=== PATIENT | male | born 1945 | race Caucasian/White ===

== ENCOUNTER 2017-01-31 05:10 | Day surgery (SDC) | payer MEDICARE, MEDICAID ==
[2017-01-30 11:10] LABS: BASOPHILS 0.3 % (0.0-2.0); EOSINOPHILS 1.3 % (0-7); HEMATOCRIT 48.9 % (42.0-54.0); HEMOGLOBIN 16.7 g/dL (13.5-17.5); LYMPHOCYTES 16.1 % (15-50); MCH 33.1 pg (26.0-34.0); MCHC 34.2 g/dL (31.0-37.0); MCV 96.8 fL (80.0-100.0); MEAN PLATELET VOLUME 11.2 fL (7.4-10.4); MONOCYTES 7.8 % (2-11); NEUTROPHILS 74.5 % (40-80); PLATELET COUNT 132 10x3/uL (130-400); RBC 5.05 10x6/uL (4.20-6.10); RDW 12.8 % (11.5-14.5)
[2017-01-30 11:21] LABS: APTT 31.6 SECONDS (22.8-39.4); CARBON DIOXIDE 25.5 mmol/L (21.0-32.0); CREATININE - SERUM 1.7 mg/dL (0.6-1.3); INR 1.04 (0.85-1.17); POTASSIUM - SERUM 4.5 mmol/L (3.5-5.1); PROTIME 13.5 SECONDS (11.6-15.0)
[~2017-01-31] VITALS: Ht 190.5 cm; Wt 88.5 kg
--- NOTE | ~2017-01-31 | OP ---
PATIENT NAME: SHARMILA KIMBLE MEDICAL RECORD: [id number] :45 LOCATION:[facility] ADMISSION DATE: SURGEON: HEATH ACEVEDO MD DATE OF OPERATION: 01/31/2017 REFERRING PHYSICIAN: Bear Betancur MD PREOPERATIVE DIAGNOSIS: Initial reducible symptomatic right inguinal hernia. POSTOPERATIVE DIAGNOSIS: Initial reducible direct right inguinal hernia. OPERATION: Repair with preperitoneal Kugel technique implanting a small oval Ventrio ST polypropylene self-expanding mesh. SURGEON: Heath Acevedo MD ANESTHESIA: General with LMA per HISTOLOGY TECHNICIAN. PREOPERATIVE NOTE: Mr. Kimble is a very nice 71-year-old white male patient with a mildly symptomatic right inguinal hernia, which I have determined should be repaired and he was brought to the operating room as an outpatient for that. Under general anesthesia in supine position, the patient was prepped and draped in a sterile manner with the right arm at his side, a transverse incision about 4 cm in length was made in the right lower quadrant. Subcutaneous tissues were divided with electrocautery and the external oblique aponeurosis, opened parallel to its fibers and the muscle splitting gridiron technique used to enter the preperitoneal space, which was then dissected bluntly and a direct inguinal hernia reduced. The defect was about ping pong ball sized. Additional dissection exposed the internal ring and the spermatic cord and it did demonstrated that there was no indirect inguinal hernia present. The wound was instilled with 10 cc of 0.25% Marcaine with epinephrine and a size small Bard oval Ventrio ST mesh patch was placed in the preperitoneal space with the adhesion barrier side facing the peritoneum. The patch covered completely the floor of the inguinal canal and the hernia defect and Raymond's ligament and the internal ring and cord structures and then wrapped around as a taco under the anterior abdominal wall reinforcing the closure as well. The patch was held in position and the abdominal wall closure begun with a few interrupted simple 3-0 Vicryl sutures, approximating the internal oblique and transversus abdominis muscle fascia with 3-0 Vicryl. Again, the wound was infiltrated with another 20 cc of 0.25% Marcaine with epinephrine. The external oblique aponeurosis was then approximated with interrupted 3-0 Vicryl and the subcutaneous tissues and Alexandria's fascia also then approximated as a separate layer with inverted 3-0 Vicryl sutures. Skin was closed with a running intracuticular 4-0 Monocryl and Dermabond glue and the incision then dressed with Maxorb AG, Cavilon and Tegaderm skin prep. The patient was awakened and taken to the recovery room in stable condition. Blood loss throughout the procedure was insignificant. All sponges, instruments and needles were accounted for. No drain was used and no surgical specimen was submitted for histopathology. I will have Mr. Kimble back to see me in my office next week. In the meantime, he can resume activities as tolerated. He is to resume a regular diet as tolerated and continue all of his home medications. He is to shower and wash over the waterproof plastic dressing as desired. He is to continue his home medications and is given 2 additional prescriptions, one for Surfak 240 mg to OPERATIVE REPORT [id number] SHARMILA KIMBLE take 1 daily for 30 days to prevent opioid-induced postoperative constipation. He is also given a paper hand signed and signed a prescription for Cook 5/325, #30, one or if necessary two p.o. q.4 hours p.r.n. postop pain. He may also alternate the Cook with ibuprofen or take Aleve with the medication or instead of the medication prescribed. TRANSINT:[id number] Voice Confirmation ID: [id number] DOCUMENT ID: [id number] HEATH ACEVEDO MD CC: BEAR BETANCUR M.D. [id number] DICTATION DATE: 01/31/17921 PEDIATRIC NP: 01/31/17 1011 REG [facility] [address] [place] [address]
[~2017-01-31 05:10] MED LIST: CRESTOR40 MG PO; GLUCOPHAGE1000 MG PO; GLUCOTROL 5 MG T5 MG PO; JANUVIA25 MG PO; JARDIANCE10 MG PO; LISINOPRIL2.5 MG PO
[2017-01-31 06:53] VITALS: BP 112/71; Ht 190.5 cm; Wt 88.5 kg
[2017-01-31] MEDS ORDERED: SURFAK240 MG PO (09:06)
[2017-01-31] MEDS ORDERED: HYDROCODON-ACE1 EAC7 PO (09:07)
--- NOTE | 2017-01-31 17:32 | NUR ---
1015 IV DC WITH CATHER TIP INTACT
== END 2017-01-31 10:30 | disposition home or self-care (01) ==
LOC: D.OPS 05:10 → D.PAN 07:30 → D.OPS 07:30
PROVIDERS: Surgery
DX: K40.90 Unilateral inguinal hernia, without obstruction or gangrene, not specified as recurrent (principal)

== ENCOUNTER → 2017-12-27 12:37 | Outpatient (CLI) | payer MEDICARE, OTHER ==
[2017-01-31 06:53] VITALS: BMI 24.4
[~2017-12-27 12:37] MED LIST changes: +HYDROCODON-ACE1 EAC7 PO; +SURFAK240 MG PO
== END | disposition home or self-care (01) ==
LOC: D.US 12:37
DX: M79.604 Pain in right leg (principal)

== ENCOUNTER 2018-01-04 04:44 | Inpatient (IN) | payer MEDICARE, OTHER ==
--- NOTE | ~2018-01-04 | EC ---
PATIENT:SHARMILA YANG DATE OF SERVICE: 01/06/18 SEX: M MEDICAL RECORD: [id number] DATE OF : 45 LOCATION:D.M2 D.211 AGE OF PATIENT: 72 ADMISSION DATE: 01/06/18 REFERRING PHYSICIAN: INTERPRETING PHYSICIAN: MALGORZATA BARBA MD ECHOCARDIOGRAM REPORT ECHO CHARGES CLINICAL DIAGNOSIS: ECHOCARDIOGRAPHIC MEASUREMENTS (adult normal given) AC root (d.<3.7cm) cm LV Septum d (<1.2 cm> cm Valve Excursion cm LV Septum (systole) cm Left Atria (s.<4.0cm> cm LVPW d(<1.2cm) cm RV (d.<2.3cm) cm LVPW (sytole) cm LV diastole(<5.6CM) cm MV E-F(>70mm/sec) cm LV systole cm LVOT Diameter cm MV exc.(>10mm) cm Est.ejection fraction (50-75%) % Pericardial Effusion DOPPLER: LVIT cm/sec A cm/sec E cm/sec LA cm/sec RVSP mmHg LVOT cm/sec AOP1/2T m/s Asc. Ao cm/sec RVOT cm/sec RA cm/sec PA cm/sec AV Gradient Peak mmHg AV Mean mmHg AV Area cm MV Gradient Peak mmHg MV Mean mmHg MV Area cm COMMENTS: Allergy Physician: Suction Roller: ERIC DATE OF SERVICE: 01/04/2018 PROCEDURE: Transthoracic echocardiogram. FINDINGS: 1. Left ventricle has mild left ventricular hypertrophy with ejection fraction of 60%. There is no regional wall motion abnormalities seen. Inflow characteristics are normal. 2. The left atrium is normal size, normal function. 3. The aortic valve is normal. ECHOCARDIOGRAM REPORT [id number] SHARMILA YANG 4. The mitral valve is normal. 5. The tricuspid valve is normal. 6. Pulmonic valve is normal. 7. The right atrium is mildly dilated as well as the right ventricle. CONCLUSIONS: The patient has evidence of mild left ventricular hypertrophy, otherwise normal echocardiogram. TRANSINT:[id number] Voice Confirmation ID: [id number] DOCUMENT ID: [id number] 01/10/2018 Edited to correct date of service, dmm. MALGORZATA BARBA MD at 1001 CC: [id number] DICTATION DATE: 01/05/182103 INTERVENTIONAL PHYSICIAN: 01/06/18 0057 DIS IN 01/09/18 [facility] [address] [place] [address]
[2018-01-04 05:03] LABS: HEMATOCRIT 43.2 % (42.0-54.0); HEMOGLOBIN 14.9 g/dL (13.5-17.5); MCH 32.6 pg (26.0-34.0); MCHC 34.5 g/dL (31.0-37.0); MCV 94.5 fL (80.0-100.0); MEAN PLATELET VOLUME 12.3 fL (7.4-10.4); PLATELET COUNT 76 10x3/uL (130-400); RBC 4.57 10x6/uL (4.20-6.10); RDW 13.1 % (11.5-14.5); WBC 10.1 10x3/uL (4.8-10.8)
[2018-01-04 05:27] LABS: ALBUMIN 3.6 g/dL (3.4-5.0); ALKALINE PHOSPHATASE 43 U/L (46-116); ALT (SGPT) 48 U/L (10-68); BILIRUBIN - TOTAL 0.62 mg/dL (0.2-1.3); CALC OSMOLALITY 283 mosm/kg (275-300); CARBON DIOXIDE 24.4 mmol/L (21.0-32.0); CHLORIDE - SERUM 106 mmol/L (98-107); CREATININE - SERUM 1.3 mg/dL (0.6-1.3); POTASSIUM - SERUM 3.9 mmol/L (3.5-5.1); PROTEIN - SERUM 6.9 g/dL (6.4-8.2); SODIUM 139 mmol/L (136-145); UREA NITROGEN 31 mg/dL (7-18); eGFR NON AFRICAN AMERICAN 58 mL/min (90-120)
[2018-01-04 05:34] LABS: GLUCOSE 73 mg/dL (74-106)
[2018-01-04 05:35] LABS: APTT 29.3 SECONDS (22.8-39.4); INR 0.92 (0.85-1.17)
[2018-01-04 05:37] LABS: D-DIMER-QUANTITATIVE 0.89 ug/mLFEU (0.20-0.54)
[2018-01-04 05:39] LABS: CHOL - HDL RATIO 4.9 ratio (2.3-4.9); CHOLESTEROL, TOTAL 117 mg/dL (0-200); CKMB 2.4 U/L (0.0-3.6); CREATINE KINASE 119 UL (21-232); HDL CHOLESTEROL 24 mg/dL (32-96); LDL CHOLESTEROL 53 mg/dL (0-100); LDL-HDL RATIO 2.2 ratio (1.5-3.5); MAGNESIUM - SERUM 1.5 mg/dL (1.8-2.4); PRO BNP 152 pg/mL (0-125); TRIGLYCERIDE 203 mg/dL (30-200)
[2018-01-04 05:40] LABS: TROPONIN-I < 0.017 ng/mL (0.000-0.060)
[2018-01-04 05:45] LABS: LYMPHOCYTES 28 % (15-50); MONOCYTES 5 % (2-11); NEUTROPHILS 53 % (40-80); PLATELET ESTIMATE DECREASED; SMUDGE CELLS 1+
[2018-01-04 10:48] VITALS: BP 125/65; BMI 23.9
[2018-01-04 11:19] VITALS: BP 125/64
[2018-01-04 15:22] VITALS: BP 137/76
[2018-01-04 17:45] LABS: ERYTHROCYTE SEDIMENTATION RATE 2 mm/hr (0-20)
[2018-01-04] MEDS ORDERED: ZETIA10 MG PO (18:09)
[2018-01-04 20:59] VITALS: BP 143/74
[2018-01-05 00:36] VITALS: BP 132/75
[2018-01-05 05:17] VITALS: BP 121/73
[2018-01-05 05:37] LABS: BASOPHILS 0.6 % (0-2); EOSINOPHILS 0.1 % (0-7); HEMATOCRIT 43.2 % (42.0-54.0); HEMOGLOBIN 14.5 g/dL (13.5-17.5); LYMPHOCYTES 17.2 % (15-50); MCH 31.9 pg (26.0-34.0); MCHC 33.6 g/dL (31.0-37.0); MCV 95.2 fL (80.0-100.0); MEAN PLATELET VOLUME 12.7 fL (7.4-10.4); MONOCYTES 14.9 % (2-11); NEUTROPHILS 58.2 % (40-80); PLATELET COUNT 70 10x3/uL (130-400); RBC 4.54 10x6/uL (4.20-6.10); RDW 13.2 % (11.5-14.5); WBC 9.3 10x3/uL (4.8-10.8)
[2018-01-05 05:43] LABS: ANION GAP 16.3 mmol/L (8-16); CALCIUM 8.1 mg/dL (8.5-10.1); CREATININE - SERUM 1.1 mg/dL (0.6-1.3); MAGNESIUM - SERUM 1.6 mg/dL (1.8-2.4); POTASSIUM - SERUM 4.3 mmol/L (3.5-5.1)
[2018-01-05 08:12] LABS: INR 0.97 (0.85-1.17); PROTIME 12.5 SECONDS (11.6-15.0)
[2018-01-05 08:39] VITALS: BP 131/77
[2018-01-05 11:16] LABS: ANA REFLEX - DIRECT Negative (Negative)
[2018-01-05 16:01] VITALS: BP 134/76
[2018-01-05 19:00] VITALS: BP 129/71
[2018-01-06] VITALS: BP 131/50
[2018-01-06 04:00] VITALS: BP 112/72
[2018-01-06 04:39] LABS: BASOPHILS 1.2 % (0-2); EOSINOPHILS 0.1 % (0-7); HEMATOCRIT 43.6 % (42.0-54.0); HEMOGLOBIN 14.7 g/dL (13.5-17.5); IMMATURE GRANULOCYTES 8.4 % (0-5); MCH 32.1 pg (26.0-34.0); MCHC 33.7 g/dL (31.0-37.0); MCV 95.2 fL (80.0-100.0); MEAN PLATELET VOLUME 12.6 fL (7.4-10.4); MONOCYTES 13.5 % (2-11); NEUTROPHILS 56.8 % (40-80); PLATELET COUNT 71 10x3/uL (130-400); RBC 4.58 10x6/uL (4.20-6.10); RDW 13.4 % (11.5-14.5); WBC 8.2 10x3/uL (4.8-10.8)
[2018-01-06 04:50] LABS: ANION GAP 14.1 mmol/L (8-16); CALCIUM 9.3 mg/dL (8.5-10.1); CREATININE - SERUM 1.3 mg/dL (0.6-1.3); POTASSIUM - SERUM 4.1 mmol/L (3.5-5.1)
[2018-01-06 07:46] VITALS: BP 122/77
[2018-01-06 08:20] LABS: FOLATE (FOLIC ACID) - SERUM 10.7 ng/mL (>3.0)
[2018-01-06 09:16] LABS: CEA 1.2 ng/mL (0.0-4.7)
[2018-01-06 11:39] VITALS: BP 126/72
[2018-01-06 15:34] VITALS: BP 123/70
[2018-01-06 20:00] VITALS: BP 106/66
[2018-01-07 04:00] VITALS: BP 127/71
[2018-01-07 05:38] LABS: BASOPHILS 0.7 % (0-2); EOSINOPHILS 0.3 % (0-7); HEMATOCRIT 42.3 % (42.0-54.0); HEMOGLOBIN 14.3 g/dL (13.5-17.5); IMMATURE GRANULOCYTES 7.7 % (0-5); LYMPHOCYTES 22.1 % (15-50); MCH 31.9 pg (26.0-34.0); MCHC 33.8 g/dL (31.0-37.0); MCV 94.4 fL (80.0-100.0); MONOCYTES 12.1 % (2-11); NEUTROPHILS 57.1 % (40-80); PLATELET COUNT 70 10x3/uL (130-400); RBC 4.48 10x6/uL (4.20-6.10); RDW 13.4 % (11.5-14.5); WBC 7.3 10x3/uL (4.8-10.8)
[2018-01-07 06:05] LABS: CALCIUM 9.1 mg/dL (8.5-10.1); CARBON DIOXIDE 24.1 mmol/L (21.0-32.0); CREATININE - SERUM 1.3 mg/dL (0.6-1.3); POTASSIUM - SERUM 4.1 mmol/L (3.5-5.1)
[2018-01-07 08:59] VITALS: BP 119/76
[2018-01-07 13:10] VITALS: BP 105/67
[2018-01-07 15:55] VITALS: BP 114/69
[2018-01-07 19:35] VITALS: BP 132/82
[2018-01-08 01:33] VITALS: BP 124/73
[2018-01-08 05:53] VITALS: BP 116/73
[2018-01-08 05:58] LABS: BASOPHILS 1.2 % (0-2); EOSINOPHILS 0.1 % (0-7); HEMATOCRIT 44.6 % (42.0-54.0); HEMOGLOBIN 15.1 g/dL (13.5-17.5); IMMATURE GRANULOCYTES 7.8 % (0-5); MCH 32.1 pg (26.0-34.0); MCHC 33.9 g/dL (31.0-37.0); MCV 94.9 fL (80.0-100.0); MEAN PLATELET VOLUME 12.8 fL (7.4-10.4); MONOCYTES 15.5 % (2-11); NEUTROPHILS 49.4 % (40-80); PLATELET COUNT 68 10x3/uL (130-400); RDW 13.4 % (11.5-14.5); WBC 7.5 10x3/uL (4.8-10.8)
[2018-01-08 06:04] LABS: APTT 32.2 SECONDS (22.8-39.4); INR 0.97 (0.85-1.17); PROTIME 12.5 SECONDS (11.6-15.0)
[2018-01-08 06:13] LABS: CALCIUM 8.6 mg/dL (8.5-10.1); CARBON DIOXIDE 23.9 mmol/L (21.0-32.0); CREATININE - SERUM 1.5 mg/dL (0.6-1.3); POTASSIUM - SERUM 3.9 mmol/L (3.5-5.1)
[2018-01-08 08:46] VITALS: BP 116/70
[2018-01-08 11:13] LABS: ANA REFLEX - DIRECT Negative (Negative)
[2018-01-08 12:02] VITALS: BMI 22.4
[2018-01-08 12:54] VITALS: BP 122/73
[2018-01-08 16:11] VITALS: BP 123/76
[2018-01-08 16:11] LABS: ANCA - ANTIMYELOPEROXIDASE <9.0 U/mL (0.0-9.0); ANCA - ANTIPROTEINASE 3 <3.5 U/mL (0.0-3.5); ANCA - ATYPICAL <1:20 titer (Neg:<1:20); ANCA - CYTOPLASMIC <1:20 titer (Neg:<1:20); ANCA - PERINUCLEAR <1:20 titer (Neg:<1:20)
[2018-01-08 19:00] VITALS: BP 125/69
[2018-01-09] VITALS: BP 98/62
[2018-01-09 04:00] VITALS: BP 101/74
[2018-01-09 05:29] LABS: BASOPHILS 1.1 % (0-2); EOSINOPHILS 0 % (0-7); HEMATOCRIT 42.3 % (42.0-54.0); HEMOGLOBIN 14.2 g/dL (13.5-17.5); IMMATURE GRANULOCYTES 6.4 % (0-5); LYMPHOCYTES 25.6 % (15-50); MCH 31.6 pg (26.0-34.0); MCHC 33.6 g/dL (31.0-37.0); MCV 94.2 fL (80.0-100.0); MEAN PLATELET VOLUME 11.6 fL (7.4-10.4); MONOCYTES 15.9 % (2-11); RBC 4.49 10x6/uL (4.20-6.10); RDW 13.5 % (11.5-14.5); WBC 6.2 10x3/uL (4.8-10.8)
[2018-01-09 05:39] LABS: PLATELET COUNT 93 10x3/uL (130-400)
[2018-01-09 05:40] LABS: ANION GAP 14.1 mmol/L (8-16); CARBON DIOXIDE 24.9 mmol/L (21.0-32.0); CREATININE - SERUM 1.5 mg/dL (0.6-1.3)
[2018-01-09 08:02] VITALS: BP 127/71
[2018-01-09 11:34] VITALS: BP 113/68
== END 2018-01-09 16:03 | disposition home or self-care (01) | DRG 841 ==
LOC: D.ER 04:44 → OBSVTIME 09:08 → D.M2 09:08 → D.SDCHOLD 01-05 13:21 → D.M2 01-05 14:53 → D.SDCHOLD 01-08 10:55 → D.M2 01-08 10:55
PROVIDERS: Family Medicine; Internal Medicine Medical Oncology; Internal Medicine Nephrology; Radiology Diagnostic Radiology
PROC: 0WBH3ZX Excision of Retroperitoneum, Percutaneous Approach, Diagnostic (ICD-10-PCS; principal; 2018-01-08 10:30)
DX: C83.33 Diffuse large B-cell lymphoma, intra-abdominal lymph nodes (principal); N17.9 Acute kidney failure, unspecified; R19.09 Other intra-abdominal and pelvic swelling, mass and lump; I25.10 Atherosclerotic heart disease of native coronary artery without angina pectoris; Z95.5 Presence of coronary angioplasty implant and graft; Z95.1 Presence of aortocoronary bypass graft; E11.9 Type 2 diabetes mellitus without complications; E78.5 Hyperlipidemia, unspecified; I10 Essential (primary) hypertension; Z87.891 Personal history of nicotine dependence; D69.6 Thrombocytopenia, unspecified; E83.42 Hypomagnesemia; K80.20 Calculus of gallbladder without cholecystitis without obstruction

== ENCOUNTER → 2018-01-15 12:51 | Outpatient (CLI) | payer MEDICARE, OTHER ==
[2018-01-08 12:02] VITALS: BMI 22.4
--- NOTE | ~2018-01-15 | EC ---
PATIENT:SHARMILA YANG DATE OF SERVICE: 01/16/18 SEX: M MEDICAL RECORD: [id number] DATE OF : 45 LOCATION:[facility] AGE OF PATIENT: 72 ADMISSION DATE: 01/15/18 REFERRING PHYSICIAN: INTERPRETING PHYSICIAN: CHEYANNE BANUELOS MD ECHOCARDIOGRAM REPORT ECHO CHARGES CLINICAL DIAGNOSIS: ECHOCARDIOGRAPHIC MEASUREMENTS (adult normal given) AC root (d.<3.7cm) cm LV Septum d (<1.2 cm> cm Valve Excursion cm LV Septum (systole) cm Left Atria (s.<4.0cm> cm LVPW d(<1.2cm) cm RV (d.<2.3cm) cm LVPW (sytole) cm LV diastole(<5.6CM) cm MV E-F(>70mm/sec) cm LV systole cm LVOT Diameter cm MV exc.(>10mm) cm Est.ejection fraction (50-75%) % Pericardial Effusion DOPPLER: LVIT cm/sec A cm/sec E cm/sec LA cm/sec RVSP mmHg LVOT cm/sec AOP1/2T m/s Asc. Ao cm/sec RVOT cm/sec RA cm/sec PA cm/sec AV Gradient Peak mmHg AV Mean mmHg AV Area cm MV Gradient Peak mmHg MV Mean mmHg MV Area cm COMMENTS: Degree Clerk: Aviation Project Manager: ERIC DATE OF SERVICE: 01/15/2018 FINDINGS: 1. Left ventricular chamber size is within normal limits. Left ventricular systolic function is normal. Overall ejection fraction estimated at 55%. 2. Left atrium is enlarged at 4.3 cm. Right atrium and right ventricular chamber sizes are as well mildly dilated. 3. Valvular structures have normal structure and motion. 4. Doppler interrogation reveals moderate mitral regurgitation, mild tricuspid regurgitation. No other valvular insufficiency or stenosis. ECHOCARDIOGRAM REPORT [id number] SHARMILA YANG 5. No evidence of pericardial effusion or left ventricular thrombus. TRANSINT:[id number] Voice Confirmation ID: [id number] DOCUMENT ID: [id number] 01/18/2018 Edited to correct date of service, dmm. CHEYANNE BANUELOS MD at 1202 CC: [id number] DICTATION DATE: 01/16/18 1216 REGISTRY NURSE: 01/16/18 1223 DEP CLI 01/15/[address] [facility] [address] [place] [address]
[~2018-01-15 12:51] MED LIST changes: +CLONAZEPAM1 MG/TAB PO; +ENDOCET 10-3251 TAB PO; +GLUCOTROL 5 MG T5 MG; +JANUVIA100 MG PO; +OMNICEF300 MG PO; +PREDNISONE50 MG; +PREDNISONE50 MG PO; +PROTONIX40 MG; +PROTONIX40 MG PO; +ZETIA10 MG PO; +ZYLOPRIM300 MG PO
== END | disposition home or self-care (01) ==
LOC: D.ECHO 09:00
DX: Z51.11 Encounter for antineoplastic chemotherapy (principal)

== ENCOUNTER 2018-01-16 06:08 | Day surgery (SDC) | payer MEDICARE, OTHER ==
[~2018-01-16] VITALS: Ht 266.7 cm; Wt 80.7 kg
--- NOTE | ~2018-01-16 | OP ---
PATIENT NAME: SHARMILA YANG MEDICAL RECORD: [id number] :45 LOCATION:.[facility] ADMISSION DATE: SURGEON: CRISTIAN BYRNE MD DATE OF OPERATION: 01/16/2018 PREOPERATIVE DIAGNOSIS: Lymphoma in need of IV access for chemotherapy. POSTOPERATIVE DIAGNOSIS: Lymphoma in need of IV access for chemotherapy. PROCEDURE: 1. Left infraclavicular PowerPort placement via cephalic vein cutdown under fluoroscopic guidance. 2. Immediate surgeon interpretation under fluoroscopic images. SURGEON: Cristian Byrne MD ACTUARIAL INTERN: None. BLOOD LOSS: Minimal. ANESTHESIA: General. COMPLICATIONS: None. This dictation should be my standard dictation for left sided PowerPort via cephalic vein cutdown. The risks, possible complications, and alternatives to the procedure were explained to the patient. The patient elects to proceed. The discussion specifically included, but was not limited to, bleeding requiring emergency reoperation, infection, great vessel injury, pneumothorax, the fact that the port may flip, may become nonfunctional, may coil off or get infected. The patient elects to proceed. A consent form was signed. No radiologist was present for this procedure. Static fluoroscopic images were obtained and are kept in the PACS system. The surgeon interpretation of the fluoroscopic images is dictated within the body of this operative note. DESCRIPTION OF PROCEDURE: The patient was conveyed to the operating room. General anesthesia was induced by the anesthesia staff. The left neck and left chest were sterilely prepped and draped. A transverse incision was accomplished inferior to the left clavicle. Sharp dissection was carried down to the level of the pectoralis fascia. A subcutaneous pocket was created bluntly in a caudad direction. I then excised some of the adipose tissue from underneath the flap to allow for easier access of the port. I dissected in the deltopectoral groove. A generous cephalic vein was identified. Two ties were placed on the cephalic vein laterally. A loose tie was placed on the cephalic vein medially. A small venotomy was accomplished between the ties. Utilizing the yellow vein pick, I was able to advance the PowerPort catheter. It was advanced to the cavoatrial junction. The catheter was cut. It was attached to the PowerPort. The locking device was firmly engaged. The port was placed in subcutaneous pocket after I divided the cephalic vein between the ties. The port was then sutured with 3-point fixation to the underlying pectoralis fascia utilizing 3-0 Prolenes. I irrigated the pocket. There was no bleeding. The port accessed easily and aspirated dark, nonpulsatile blood. OPERATIVE REPORT [id number] SHARMILA YANG The subdermis was approximated with interrupted 3-0 Vicryls. The skin was approximated with a running intracuticular 3-0 Vicryl. A sterile dressing was applied. The patient was then extubated and conveyed to the postanesthesia care unit. The patient will be dismissed home on analgesia. There is no need for the patient to see me in the office and followup unless the patient develops a complication related to this operative procedure. TRANSINT:[id number] Voice Confirmation ID: [id number] DOCUMENT ID: [id number] CC: Dr. Abdulaziz Momin Menlo. CRISTIAN BYRNE MD at 1042 CC: DR. ABDULAZIZ MOMIN, MIKE OLIVEIRA MD and BEAR BETANCUR [id number] DICTATION DATE: 01/16/18927 C++ PROFESSOR: 01/16/18 1051 [facility] 01/16/18 [facility] [address] [place] [address]
[~2018-01-16 06:08] MED LIST changes: -CLONAZEPAM1 MG/TAB PO; -ENDOCET 10-3251 TAB PO; -GLUCOTROL 5 MG T5 MG; -JANUVIA100 MG PO; -OMNICEF300 MG PO; -PREDNISONE50 MG; -PREDNISONE50 MG PO; -PROTONIX40 MG; -PROTONIX40 MG PO; -ZYLOPRIM300 MG PO
[2018-01-16] MEDS ORDERED: JARDIANCE10 MG PO (06:15)
[2018-01-16] MEDS ORDERED: PROTONIX40 MG (06:16)
[2018-01-16] MEDS ORDERED: PREDNISONE50 MG (06:16)
[2018-01-16] MEDS ORDERED: ZETIA10 MG PO (06:18)
[2018-01-16] MEDS ORDERED: CRESTOR40 MG PO (06:19)
[2018-01-16 06:30] VITALS: BP 125/80; Ht 266.7 cm; Wt 80.7 kg
[2018-01-16 06:40] LABS: EOSINOPHILS 0 % (0-7); HEMATOCRIT 39.8 % (42.0-54.0); HEMOGLOBIN 13.2 g/dL (13.5-17.5); LYMPHOCYTES 28.3 % (15-50); MCH 31.5 pg (26.0-34.0); MCHC 33.2 g/dL (31.0-37.0); MEAN PLATELET VOLUME 11.9 fL (7.4-10.4); MONOCYTES 17.7 % (2-11); RBC 4.19 10x6/uL (4.20-6.10); RDW 13.7 % (11.5-14.5); WBC 6.9 10x3/uL (4.8-10.8)
[2018-01-16 06:45] LABS: PLATELET COUNT 67 10x3/uL (130-400)
[2018-01-16 06:49] LABS: APTT 30.8 SECONDS (22.8-39.4); INR 0.95 (0.85-1.17); PROTIME 12.3 SECONDS (11.6-15.0)
[2018-01-16 07:13] LABS: ANION GAP 15.8 mmol/L (8-16); CALCIUM 8.8 mg/dL (8.5-10.1); CARBON DIOXIDE 23.2 mmol/L (21.0-32.0); CREATININE - SERUM 1.4 mg/dL (0.6-1.3)
== END 2018-01-16 09:50 | disposition home or self-care (01) ==
LOC: D.OPS 06:08 → D.PAN 08:00 → D.OPS 08:00
PROVIDERS: Anesthesiology
DX: C85.90 Non-Hodgkin lymphoma, unspecified, unspecified site (principal); Z01.812 Encounter for preprocedural laboratory examination

== ENCOUNTER 2018-01-20 18:23 | Inpatient (IN) | payer MEDICARE, OTHER ==
[~2018-01-20] VITALS: Ht 190.5 cm; Wt 80.7 kg
--- NOTE | ~2018-01-20 | CN ---
PATIENT NAME:SHARMILA YANG MEDICAL RECORD: [id number] : 45 LOCATION:D.MS Jarvis2229 ADMIT DATE: 01/20/18 ACCOUNT: [id number] CONSULTING PHYSICIAN: NATALIIA SOSA MD REFERRING PHYSICIAN: SON MILIAN MD DATE OF CONSULTATION: 01/30/2018 PLACE OF SERVICE: [facility], inpatient. CONSULTING PHYSICIAN: Son Milian MD HISTORY OF PRESENT ILLNESS: This is a 72-year-old white male with a complex history related to lymphoma. He has had a 3-month history of right lower extremity flail foot. He denies any pain. He describes anesthesia from mid leg caudally, particularly in the L5 and S1 distributions. He is able to ambulate with a steppage type gait. He denies seizure or other motor or sensory weakness. PAST MEDICAL HISTORY: Past neurologic history: None. ENT: None. Endocrine history: Diabetes. Cardiovascular history: Hypertension, stents, angioplasty, CABG, coronary artery disease, coronary artery times 1 bypass, grafts times 3 in 2008. Respiratory history: None. Cancer history: Lymphoma. Immune disorders: None. Gastrointestinal history: Acid reflux. PAST SURGICAL HISTORY: Coronary artery bypass graft, coronary stent times 1, right knee replacement, right knee scope, I&D sternal incision, right knee, right elbow. ALLERGIES: No known allergies. MEDICATIONS: Docusate, hydrocodone, glipizide, Jardiance, clonazepam, oxycodone, metformin, glipizide, lisinopril, Zetia, and Crestor. PHYSICAL EXAMINATION: GENERAL: A 72-year-old white male, in no acute distress, lying supine on the stretcher. NEUROLOGIC: Motor strength is 5/5 and equal in all 4 extremities to detailed testing except for right gastroc and soleus is 1-2/5 and right tibialis anterior and extensor hallucis longus is 0-1/5. DTRs are absent on the right. Otherwise, DTRs are 2+ over biceps, triceps, patella, and Achilles. Analgesia right L5 and S1 distributions. RADIOLOGIC DATA: MRI of the lumbar spine shows multilevel involvement of the vertebrae with lymphoma. He has severe lumbar spinal stenosis at L4-5 centrally and in each neuroforamen. 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 IMPRESSION: Flail foot on the right secondary to right L5 and S1 radiculopathy. PLAN: We will plan on elective lumbar decompression at L4-5 when he is medically stable. I will see him as an outpatient when he is discharged from the hospital. Thank you for the consult. CONSULT REPORT [id number] SHARMILA YANG TRANSINT:[id number] Voice Confirmation ID: [id number] DOCUMENT ID: [id number] NATALIIA SOSA MD at 1133 CC: [id number] DICTATION DATE: 01/30/18 183 SOMMELIER: 01/31/18 0812 ADM IN [facility] [address] [place] [address]
[~2018-01-20 18:23] MED LIST changes: +PREDNISONE50 MG; +PROTONIX40 MG
[2018-01-20 19:35] LABS: BASOPHILS 0.9 % (0-2); EOSINOPHILS 0 % (0-7); HEMATOCRIT 35.4 % (42.0-54.0); IMMATURE GRANULOCYTES 2.8 % (0-5); LYMPHOCYTES 12.8 % (15-50); MCH 31.7 pg (26.0-34.0); MCHC 33.9 g/dL (31.0-37.0); MCV 93.4 fL (80.0-100.0); MEAN PLATELET VOLUME 10.9 fL (7.4-10.4); MONOCYTES 4.6 % (2-11); NEUTROPHILS 78.9 % (40-80); RBC 3.79 10x6/uL (4.20-6.10); RDW 13.8 % (11.5-14.5)
[2018-01-20 19:39] LABS: WBC 1.1 10x3/uL (4.8-10.8)
[2018-01-20 19:40] LABS: PLATELET COUNT 37 10x3/uL (130-400)
[2018-01-20 19:51] LABS: ALBUMIN 3.2 g/dL (3.4-5.0); ANION GAP 17.8 mmol/L (8-16); BILIRUBIN - TOTAL 0.93 mg/dL (0.2-1.3); CALCIUM 8.4 mg/dL (8.5-10.1); CARBON DIOXIDE 20.8 mmol/L (21.0-32.0); CREATININE - SERUM 1.5 mg/dL (0.6-1.3); POTASSIUM - SERUM 4.6 mmol/L (3.5-5.1); PROTEIN - SERUM 6.5 g/dL (6.4-8.2)
[2018-01-20 19:55] LABS: PLATELET ESTIMATE DECREASED
[2018-01-20 21:32] LABS: APPEARANCE CLEAR (CLEAR); BILIRUBIN NEGATIVE (NEGATIVE); COLOR YELLOW (YELLOW); GLUCOSE 1000 mg/dL (NEGATIVE); KETONE NEGATIVE (NEGATIVE); NITRITE NEGATIVE (NEGATIVE); PROTEIN NEGATIVE (NEGATIVE); SPECIFIC GRAVITY 1.015 (1.005-1.020); UROBILINOGEN NORMAL (NORMAL)
[2018-01-21] VITALS (7 sets, daily range): BP systolic 116–153; BP diastolic 7–78; BMI 11.3
[2018-01-21] MEDS ORDERED: GLUCOTROL 5 MG T5 MG (12:24)
[2018-01-21] MEDS ORDERED: JARDIANCE10 MG PO (12:24)
[2018-01-21] MEDS ORDERED: CLONAZEPAM1 MG/TAB PO (12:25)
[2018-01-21] MEDS ORDERED: ENDOCET 10-3251 TAB PO (12:26)
[2018-01-21 12:30] LABS: % SATURATION 100 % (15-55); IRON 225 ug/dl (35-150); TOTAL IRON BIND CAPACITY 223 ug/dl (260-445)
[2018-01-21 12:31] LABS: UNSAT IRON BIND CAPACITY -2 ug/dl (150-375)
[2018-01-21] MEDS ORDERED: PROTONIX40 MG PO (21:28)
[2018-01-21] MEDS ORDERED: ZYLOPRIM300 MG PO (21:29)
[2018-01-21] MEDS ORDERED: PREDNISONE50 MG PO (21:31)
[2018-01-22 05:05] VITALS: BP 124/78
[2018-01-22 06:03] LABS: BASOPHILS 0 % (0-2); EOSINOPHILS 0 % (0-7); HEMATOCRIT 29.1 % (42.0-54.0); HEMOGLOBIN 9.8 g/dL (13.5-17.5); IMMATURE GRANULOCYTES 6.3 % (0-5); LYMPHOCYTES 5.2 % (15-50); MCH 30.7 pg (26.0-34.0); MCHC 33.7 g/dL (31.0-37.0); MEAN PLATELET VOLUME 11.9 fL (7.4-10.4); MONOCYTES 0.5 % (2-11); RBC 3.19 10x6/uL (4.20-6.10); RDW 13.4 % (11.5-14.5)
[2018-01-22 06:19] LABS: MCV 91.2 fL (80.0-100.0); PLATELET COUNT 29 10x3/uL (130-400); WBC 4.4 10x3/uL (4.8-10.8)
[2018-01-22 06:30] LABS: ALBUMIN 2.6 g/dL (3.4-5.0); ALKALINE PHOSPHATASE 40 U/L (46-116); ALT (SGPT) 29 U/L (10-68); BILIRUBIN - TOTAL 0.76 mg/dL (0.2-1.3); CALCIUM 7.8 mg/dL (8.5-10.1); CARBON DIOXIDE 22.1 mmol/L (21.0-32.0); CHLORIDE - SERUM 108 mmol/L (98-107); MAGNESIUM - SERUM 2.1 mg/dL (1.8-2.4); PROTEIN - SERUM 5.3 g/dL (6.4-8.2); SODIUM 141 mmol/L (136-145); URIC ACID 4.3 mg/dL (2.6-7.2)
[2018-01-22 06:31] LABS: CALC OSMOLALITY 289 mosm/kg (275-300); CREATININE - SERUM 0.9 mg/dL (0.6-1.3); GLUCOSE 110 mg/dL (74-106); LDH 1608 U/L (85-227); POTASSIUM - SERUM 3.7 mmol/L (3.5-5.1); UREA NITROGEN 35 mg/dL (7-18); eGFR NON AFRICAN AMERICAN 88 mL/min (90-120)
[2018-01-22 09:38] VITALS: BP 111/70
[2018-01-22 14:59] VITALS: Ht 190.5 cm; Wt 80.7 kg
[2018-01-22 15:04] VITALS: BP 126/69
[2018-01-22 18:59] VITALS: BP 114/62
[2018-01-22 23:59] VITALS: BP 139/77
[2018-01-23 04:17] VITALS: BP 136/74
[2018-01-23 06:57] LABS: BASOPHILS 0 % (0-2); EOSINOPHILS 0 % (0-7); HEMATOCRIT 32.9 % (42.0-54.0); HEMOGLOBIN 11.2 g/dL (13.5-17.5); IMMATURE GRANULOCYTES 18.6 % (0-5); LYMPHOCYTES 7.2 % (15-50); MCV 91.1 fL (80.0-100.0); MEAN PLATELET VOLUME 11.3 fL (7.4-10.4); MONOCYTES 0.4 % (2-11); NEUTROPHILS 73.8 % (40-80); RBC 3.61 10x6/uL (4.20-6.10); RDW 13.1 % (11.5-14.5)
[2018-01-23 07:04] LABS: PLATELET COUNT 21 10x3/uL (130-400)
[2018-01-23 07:06] LABS: CALCIUM 8.2 mg/dL (8.5-10.1); CARBON DIOXIDE 22.1 mmol/L (21.0-32.0); CHLORIDE - SERUM 106 mmol/L (98-107); CREATININE - SERUM 0.9 mg/dL (0.6-1.3); SODIUM 137 mmol/L (136-145); eGFR NON AFRICAN AMERICAN 88 mL/min (90-120)
[2018-01-23 07:07] LABS: GLUCOSE 254 mg/dL (74-106)
[2018-01-23 07:08] LABS: CALC OSMOLALITY 286 mosm/kg (275-300); POTASSIUM - SERUM 4.4 mmol/L (3.5-5.1); UREA NITROGEN 24 mg/dL (7-18)
[2018-01-23 08:40] VITALS: BP 114/68
[2018-01-23 09:19] LABS: FOLATE (FOLIC ACID) - SERUM 8.7 ng/mL (>3.0)
[2018-01-23 13:03] VITALS: BP 133/76
[2018-01-23 16:59] VITALS: BP 113/62
[2018-01-23 20:22] VITALS: BP 130/66
[2018-01-24 04:40] VITALS: BP 112/74
[2018-01-24 07:12] LABS: CALCIUM 8.2 mg/dL (8.5-10.1); CARBON DIOXIDE 22.2 mmol/L (21.0-32.0); CHLORIDE - SERUM 106 mmol/L (98-107); CREATININE - SERUM 0.7 mg/dL (0.6-1.3); SODIUM 138 mmol/L (136-145); UREA NITROGEN 21 mg/dL (7-18); eGFR NON AFRICAN AMERICAN > 90 mL/min (90-120)
[2018-01-24 07:15] LABS: HEMATOCRIT 29.7 % (42.0-54.0); HEMOGLOBIN 10.3 g/dL (13.5-17.5); MCH 31.1 pg (26.0-34.0); MCHC 34.7 g/dL (31.0-37.0); MCV 89.7 fL (80.0-100.0); MEAN PLATELET VOLUME 10.8 fL (7.4-10.4); RBC 3.31 10x6/uL (4.20-6.10); RDW 12.9 % (11.5-14.5)
[2018-01-24 07:18] LABS: CALC OSMOLALITY 282 mosm/kg (275-300); GLUCOSE 179 mg/dL (74-106); POTASSIUM - SERUM 3.7 mmol/L (3.5-5.1)
[2018-01-24 07:37] LABS: PLATELET COUNT 12 10x3/uL (130-400); WBC 1.8 10x3/uL (4.8-10.8)
[2018-01-24 07:54] LABS: LYMPHOCYTES 12 % (15-50); MONOCYTES 2 % (2-11); NEUTROPHILS 86 % (40-80); PLATELET ESTIMATE DECREASED
[2018-01-24 08:30] VITALS: BP 111/61; BP 123/72
[2018-01-24 13:22] VITALS: BP 123/75
[2018-01-24 17:23] VITALS: BP 127/64
[2018-01-24 21:18] VITALS: BP 138/72
[2018-01-25 04:09] VITALS: BP 114/72
[2018-01-25 06:04] LABS: CALCIUM 8.1 mg/dL (8.5-10.1); CARBON DIOXIDE 24.5 mmol/L (21.0-32.0); CHLORIDE - SERUM 109 mmol/L (98-107); CREATININE - SERUM 0.8 mg/dL (0.6-1.3); POTASSIUM - SERUM 3.4 mmol/L (3.5-5.1); SODIUM 141 mmol/L (136-145); eGFR NON AFRICAN AMERICAN > 90 mL/min (90-120)
[2018-01-25 06:08] LABS: CALC OSMOLALITY 283 mosm/kg (275-300); GLUCOSE 55 mg/dL (74-106); UREA NITROGEN 27 mg/dL (7-18)
[2018-01-25 06:14] LABS: BASOPHILS 0 % (0-2); EOSINOPHILS 0 % (0-7); HEMATOCRIT 29.2 % (42.0-54.0); IMMATURE GRANULOCYTES 4.4 % (0-5); LYMPHOCYTES 37.8 % (15-50); MCH 30.6 pg (26.0-34.0); MCHC 34.2 g/dL (31.0-37.0); MCV 89.3 fL (80.0-100.0); MONOCYTES 2.2 % (2-11); NEUTROPHILS 55.6 % (40-80); RBC 3.27 10x6/uL (4.20-6.10); RDW 12.7 % (11.5-14.5)
[2018-01-25 06:17] LABS: PLATELET COUNT 8 10x3/uL (130-400); WBC 0.5 10x3/uL (4.8-10.8)
[2018-01-25 08:31] VITALS: BP 89/52
[2018-01-25 13:03] VITALS: BP 107/63
[2018-01-25 16:28] VITALS: BP 104/65
[2018-01-25 20:55] VITALS: BP 149/65
[2018-01-26 04:24] VITALS: BP 101/64
[2018-01-26 06:39] LABS: BASOPHILS 0 % (0-2); EOSINOPHILS 0 % (0-7); HEMATOCRIT 26.6 % (42.0-54.0); HEMOGLOBIN 9.3 g/dL (13.5-17.5); IMMATURE GRANULOCYTES 6.9 % (0-5); LYMPHOCYTES 72.4 % (15-50); MCH 31.2 pg (26.0-34.0); MCV 89.3 fL (80.0-100.0); MEAN PLATELET VOLUME 10.4 fL (7.4-10.4); MONOCYTES 6.9 % (2-11); NEUTROPHILS 13.8 % (40-80); RBC 2.98 10x6/uL (4.20-6.10); RDW 12.7 % (11.5-14.5)
[2018-01-26 06:45] LABS: PLATELET COUNT 26 10x3/uL (130-400); WBC 0.3 10x3/uL (4.8-10.8)
[2018-01-26 06:52] LABS: CALC OSMOLALITY 284 mosm/kg (275-300); CALCIUM 7.9 mg/dL (8.5-10.1); CHLORIDE - SERUM 107 mmol/L (98-107); CREATININE - SERUM 0.9 mg/dL (0.6-1.3); POTASSIUM - SERUM 3.7 mmol/L (3.5-5.1); SODIUM 141 mmol/L (136-145); UREA NITROGEN 25 mg/dL (7-18); eGFR NON AFRICAN AMERICAN 88 mL/min (90-120)
[2018-01-26 06:55] LABS: GLUCOSE 101 mg/dL (74-106)
[2018-01-26 08:10] VITALS: BP 109/63
[2018-01-26 11:57] VITALS: BP 101/65
[2018-01-26 16:19] VITALS: BP 113/66
[2018-01-26 20:30] VITALS: BP 113/62
[2018-01-27 01:01] VITALS: BP 106/60
[2018-01-27 05:02] VITALS: BP 110/57
[2018-01-27 05:36] LABS: BASOPHILS 0 % (0-2); EOSINOPHILS 6.7 % (0-7); HEMATOCRIT 24.2 % (42.0-54.0); HEMOGLOBIN 8.4 g/dL (13.5-17.5); IMMATURE GRANULOCYTES 6.7 % (0-5); LYMPHOCYTES 73.3 % (15-50); MCH 30.4 pg (26.0-34.0); MCHC 34.7 g/dL (31.0-37.0); MCV 87.7 fL (80.0-100.0); MEAN PLATELET VOLUME 11.1 fL (7.4-10.4); MONOCYTES 13.3 % (2-11); NEUTROPHILS 0 % (40-80); RBC 2.76 10x6/uL (4.20-6.10); RDW 12.5 % (11.5-14.5)
[2018-01-27 05:50] LABS: PLATELET COUNT 10 10x3/uL (130-400); WBC 0.2 10x3/uL (4.8-10.8)
[2018-01-27 06:05] LABS: ALBUMIN 2.7 g/dL (3.4-5.0); ALKALINE PHOSPHATASE 43 U/L (46-116); ALT (SGPT) 25 U/L (10-68); CALC OSMOLALITY 284 mosm/kg (275-300); CALCIUM 7.8 mg/dL (8.5-10.1); CARBON DIOXIDE 22.9 mmol/L (21.0-32.0); CHLORIDE - SERUM 107 mmol/L (98-107); CREATININE - SERUM 0.8 mg/dL (0.6-1.3); GLUCOSE 128 mg/dL (74-106); POTASSIUM - SERUM 3.3 mmol/L (3.5-5.1); PROTEIN - SERUM 5.3 g/dL (6.4-8.2); SODIUM 141 mmol/L (136-145); eGFR NON AFRICAN AMERICAN > 90 mL/min (90-120)
[2018-01-27 06:06] LABS: UREA NITROGEN 18 mg/dL (7-18)
[2018-01-27 07:51] VITALS: BP 114/66
[2018-01-27 11:27] VITALS: BP 115/66
[2018-01-27 16:33] VITALS: BP 134/68
[2018-01-27 22:04] VITALS: BP 118/64
[2018-01-28] VITALS: BP 104/55
[2018-01-28 05:22] LABS: BASOPHILS 0 % (0-2); EOSINOPHILS 0 % (0-7); HEMATOCRIT 21.9 % (42.0-54.0); HEMOGLOBIN 7.6 g/dL (13.5-17.5); LYMPHOCYTES 53.8 % (15-50); MCH 30.5 pg (26.0-34.0); MCHC 34.7 g/dL (31.0-37.0); MEAN PLATELET VOLUME 9.3 fL (7.4-10.4); MONOCYTES 30.8 % (2-11); NEUTROPHILS 15.4 % (40-80); RBC 2.49 10x6/uL (4.20-6.10); RDW 12.3 % (11.5-14.5)
[2018-01-28 05:25] LABS: PLATELET COUNT 18 10x3/uL (130-400); WBC 0.3 10x3/uL (4.8-10.8)
[2018-01-28 05:37] LABS: ALBUMIN 2.5 g/dL (3.4-5.0); ALKALINE PHOSPHATASE 46 U/L (46-116); CALCIUM 7.9 mg/dL (8.5-10.1); CARBON DIOXIDE 24.2 mmol/L (21.0-32.0); CHLORIDE - SERUM 105 mmol/L (98-107); CREATININE - SERUM 0.9 mg/dL (0.6-1.3); GLUCOSE 165 mg/dL (74-106); POTASSIUM - SERUM 3.4 mmol/L (3.5-5.1); PROTEIN - SERUM 5.3 g/dL (6.4-8.2); SODIUM 137 mmol/L (136-145); eGFR NON AFRICAN AMERICAN 88 mL/min (90-120)
[2018-01-28 05:40] LABS: ALT (SGPT) 18 U/L (10-68); CALC OSMOLALITY 277 mosm/kg (275-300); UREA NITROGEN 13 mg/dL (7-18)
[2018-01-28 06:00] VITALS: BP 94/53
[2018-01-28 08:08] VITALS: BP 96/53
[2018-01-28 11:52] VITALS: BP 107/62
[2018-01-28 15:29] VITALS: BP 105/59
[2018-01-28 20:00] VITALS: BP 109/62
[2018-01-29 04:00] VITALS: BP 106/61
[2018-01-29 05:50] LABS: BASOPHILS 0 % (0-2); EOSINOPHILS 3.8 % (0-7); HEMATOCRIT 22.6 % (42.0-54.0); HEMOGLOBIN 7.7 g/dL (13.5-17.5); LYMPHOCYTES 28.8 % (15-50); MCH 28.8 pg (26.0-34.0); MCHC 34.1 g/dL (31.0-37.0); MEAN PLATELET VOLUME 9.4 fL (7.4-10.4); MONOCYTES 19.2 % (2-11); NEUTROPHILS 48.2 % (40-80); RBC 2.67 10x6/uL (4.20-6.10)
[2018-01-29 05:52] LABS: MCV 84.6 fL (80.0-100.0); PLATELET COUNT 19 10x3/uL (130-400); WBC 0.5 10x3/uL (4.8-10.8)
[2018-01-29 06:08] LABS: ALBUMIN 2.2 g/dL (3.4-5.0); ALKALINE PHOSPHATASE 44 U/L (46-116); ALT (SGPT) 18 U/L (10-68); BILIRUBIN - TOTAL 1.29 mg/dL (0.2-1.3); CALCIUM 7.6 mg/dL (8.5-10.1); CARBON DIOXIDE 25.1 mmol/L (21.0-32.0); CHLORIDE - SERUM 111 mmol/L (98-107); CREATININE - SERUM 0.9 mg/dL (0.6-1.3); POTASSIUM - SERUM 3.3 mmol/L (3.5-5.1); PROTEIN - SERUM 5.1 g/dL (6.4-8.2); SODIUM 144 mmol/L (136-145); UREA NITROGEN 13 mg/dL (7-18); eGFR NON AFRICAN AMERICAN 88 mL/min (90-120)
[2018-01-29 06:12] LABS: CALC OSMOLALITY 285 mosm/kg (275-300); GLUCOSE 76 mg/dL (74-106)
[2018-01-29 08:39] VITALS: BP 120/60
[2018-01-29 12:05] VITALS: BP 105/55
[2018-01-29 16:45] VITALS: BP 106/53
[2018-01-29 20:49] VITALS: BP 110/57
[2018-01-30] VITALS (19 sets, daily range): BP systolic 91–120; BP diastolic 51–82
[2018-01-30 05:42] LABS: BASOPHILS 0 % (0-2); EOSINOPHILS 1.6 % (0-7); HEMATOCRIT 23.1 % (42.0-54.0); HEMOGLOBIN 7.9 g/dL (13.5-17.5); IMMATURE GRANULOCYTES 4.8 % (0-5); LYMPHOCYTES 18.3 % (15-50); MCH 28.9 pg (26.0-34.0); MCHC 34.2 g/dL (31.0-37.0); MCV 84.6 fL (80.0-100.0); MEAN PLATELET VOLUME 10.6 fL (7.4-10.4); MONOCYTES 0.8 % (2-11); NEUTROPHILS 74.5 % (40-80); RBC 2.73 10x6/uL (4.20-6.10); RDW 15.5 % (11.5-14.5)
[2018-01-30 05:44] LABS: PLATELET COUNT 38 10x3/uL (130-400); WBC 1.3 10x3/uL (4.8-10.8)
[2018-01-30 06:01] LABS: ALBUMIN 2.2 g/dL (3.4-5.0); ALKALINE PHOSPHATASE 48 U/L (46-116); ALT (SGPT) 20 U/L (10-68); BILIRUBIN - TOTAL 1.35 mg/dL (0.2-1.3); CALCIUM 7.5 mg/dL (8.5-10.1); CARBON DIOXIDE 25.6 mmol/L (21.0-32.0); CHLORIDE - SERUM 111 mmol/L (98-107); CREATININE - SERUM 0.9 mg/dL (0.6-1.3); PROTEIN - SERUM 5.1 g/dL (6.4-8.2); SODIUM 145 mmol/L (136-145); UREA NITROGEN 12 mg/dL (7-18); eGFR NON AFRICAN AMERICAN 88 mL/min (90-120)
[2018-01-30 06:03] LABS: CALC OSMOLALITY 286 mosm/kg (275-300); GLUCOSE 66 mg/dL (74-106); POTASSIUM - SERUM 3.3 mmol/L (3.5-5.1)
[2018-01-30 07:13] LABS: MAGNESIUM - SERUM 1.6 mg/dL (1.8-2.4); PHOSPHOROUS 2.5 mg/dL (2.5-4.9)
[2018-01-31 05:03] VITALS: BP 124/58
[2018-01-31 05:22] LABS: BASOPHILS 0.3 % (0-2); IMMATURE GRANULOCYTES 0.6 % (0-5); LYMPHOCYTES 11.2 % (15-50); MCH 28.5 pg (26.0-34.0); MCHC 33.6 g/dL (31.0-37.0); MEAN PLATELET VOLUME 11.8 fL (7.4-10.4); MONOCYTES 8.6 % (2-11); NEUTROPHILS 77.3 % (40-80); RDW 15.6 % (11.5-14.5)
[2018-01-31 05:29] LABS: HEMATOCRIT 29.5 % (42.0-54.0); HEMOGLOBIN 9.9 g/dL (13.5-17.5); PLATELET COUNT 32 10x3/uL (130-400); RBC 3.47 10x6/uL (4.20-6.10); WBC 3.5 10x3/uL (4.8-10.8)
[2018-01-31 05:58] LABS: ALBUMIN 2.5 g/dL (3.4-5.0); ALKALINE PHOSPHATASE 56 U/L (46-116); ALT (SGPT) 20 U/L (10-68); BILIRUBIN - TOTAL 1.36 mg/dL (0.2-1.3); CALC OSMOLALITY 285 mosm/kg (275-300); CALCIUM 8.2 mg/dL (8.5-10.1); CARBON DIOXIDE 25.9 mmol/L (21.0-32.0); CHLORIDE - SERUM 110 mmol/L (98-107); GLUCOSE 94 mg/dL (74-106); POTASSIUM - SERUM 3.6 mmol/L (3.5-5.1); PROTEIN - SERUM 5.5 g/dL (6.4-8.2); SODIUM 144 mmol/L (136-145); UREA NITROGEN 10 mg/dL (7-18); eGFR NON AFRICAN AMERICAN 78 mL/min (90-120)
[2018-01-31 06:11] LABS: MAGNESIUM - SERUM 1.7 mg/dL (1.8-2.4); PHOSPHOROUS 2.5 mg/dL (2.5-4.9)
[2018-01-31 08:02] VITALS: BP 94/45
[2018-01-31 12:00] VITALS: BP 100/53
[2018-01-31 20:30] VITALS: BP 132/86
[2018-02-01 00:52] VITALS: BP 108/56
[2018-02-01 03:58] VITALS: BP 128/74
[2018-02-01 05:45] LABS: BASOPHILS 0.2 % (0-2); EOSINOPHILS 1.7 % (0-7); HEMATOCRIT 28.4 % (42.0-54.0); HEMOGLOBIN 9.4 g/dL (13.5-17.5); IMMATURE GRANULOCYTES 4.2 % (0-5); LYMPHOCYTES 6.5 % (15-50); MCH 28.6 pg (26.0-34.0); MCHC 33.1 g/dL (31.0-37.0); MCV 86.3 fL (80.0-100.0); MEAN PLATELET VOLUME 12.5 fL (7.4-10.4); MONOCYTES 10.6 % (2-11); NEUTROPHILS 76.8 % (40-80); RBC 3.29 10x6/uL (4.20-6.10); RDW 15.5 % (11.5-14.5)
[2018-02-01 06:08] LABS: PLATELET COUNT 43 10x3/uL (130-400)
[2018-02-01 06:22] LABS: CALC OSMOLALITY 290 mosm/kg (275-300); CARBON DIOXIDE 27.1 mmol/L (21.0-32.0); CHLORIDE - SERUM 110 mmol/L (98-107); MAGNESIUM - SERUM 1.7 mg/dL (1.8-2.4); POTASSIUM - SERUM 3.6 mmol/L (3.5-5.1); SODIUM 144 mmol/L (136-145); UREA NITROGEN 12 mg/dL (7-18); eGFR NON AFRICAN AMERICAN 78 mL/min (90-120)
[2018-02-01 06:24] LABS: GLUCOSE 178 mg/dL (74-106)
[2018-02-01 08:29] VITALS: BP 103/62
[2018-02-01 12:51] VITALS: BP 122/96
== END 2018-02-01 16:06 | disposition home or self-care (01) | DRG 808 ==
LOC: D.ER 18:23 → D.MS 21:02 → D.EDHOLD 21:02 → D.MS 01-21 00:23 → D.SDCHOLD 01-26 16:50 → D.MS 01-26 16:51
PROVIDERS: Family Medicine; Family Medicine Adult Medicine; Internal Medicine Nephrology
DX: D61.810 Antineoplastic chemotherapy induced pancytopenia (principal); G93.40 Encephalopathy, unspecified; N17.9 Acute kidney failure, unspecified; C83.38 Diffuse large B-cell lymphoma, lymph nodes of multiple sites; I10 Essential (primary) hypertension; E78.5 Hyperlipidemia, unspecified; E11.65 Type 2 diabetes mellitus with hyperglycemia; R53.1 Weakness; K21.9 Gastro-esophageal reflux disease without esophagitis; I25.10 Atherosclerotic heart disease of native coronary artery without angina pectoris; Z95.1 Presence of aortocoronary bypass graft; Z95.5 Presence of coronary angioplasty implant and graft; K40.90 Unilateral inguinal hernia, without obstruction or gangrene, not specified as recurrent; E87.6 Hypokalemia; E86.0 Dehydration; M48.061 Spinal stenosis, lumbar region without neurogenic claudication; K59.00 Constipation, unspecified; E83.42 Hypomagnesemia

== ENCOUNTER 2018-02-25 10:54 | Inpatient (IN) | payer MEDICARE, OTHER ==
[~2018-02-25] VITALS: Ht 190.5 cm; Wt 77.1 kg
[~2018-02-25 10:54] MED LIST changes: +CLONAZEPAM1 MG/TAB PO; +ENDOCET 10-3251 TAB PO; +GLUCOTROL 5 MG T5 MG; +PREDNISONE50 MG PO; +PROTONIX40 MG PO; +ZYLOPRIM300 MG PO
[2018-02-25 11:29] LABS: HEMATOCRIT 32.8 % (42.0-54.0); HEMOGLOBIN 11.3 g/dL (13.5-17.5); MCH 31.2 pg (26.0-34.0); MCHC 34.5 g/dL (31.0-37.0); MCV 90.6 fL (80.0-100.0); MEAN PLATELET VOLUME 10.1 fL (7.4-10.4); PLATELET COUNT 144 10x3/uL (130-400); RBC 3.62 10x6/uL (4.20-6.10); RDW 20.2 % (11.5-14.5); WBC 57.6 10x3/uL (4.8-10.8)
[2018-02-25 11:37] LABS: ALBUMIN 3.6 g/dL (3.4-5.0); ANION GAP 13.5 mmol/L (8-16); BILIRUBIN - TOTAL 0.65 mg/dL (0.2-1.3); CREATININE - SERUM 1.2 mg/dL (0.6-1.3); POTASSIUM - SERUM 3.5 mmol/L (3.5-5.1); PROTEIN - SERUM 6.4 g/dL (6.4-8.2)
[2018-02-25 11:51] LABS: LYMPHOCYTES 2 % (15-50); NEUTROPHILS 89 % (40-80); PLATELET ESTIMATE NORMAL; PLATELET MORPHOLOGY GIANT PLTS PRESENT
[2018-02-25 17:40] VITALS: BP 141/66; BMI 21.2
[2018-02-25] MEDS ORDERED: OMNICEF300 MG PO (17:49)
[2018-02-25] MEDS ORDERED: JANUVIA100 MG PO (17:52)
[2018-02-25 20:00] VITALS: BP 116/65
[2018-02-26] VITALS: BP 109/63
[2018-02-26 04:00] VITALS: BP 105/71
[2018-02-26 06:29] LABS: BASOPHILS 0.1 % (0-2); EOSINOPHILS 0 % (0-7); HEMATOCRIT 30.6 % (42.0-54.0); HEMOGLOBIN 10.3 g/dL (13.5-17.5); IMMATURE GRANULOCYTES 10.2 % (0-5); LYMPHOCYTES 0.4 % (15-50); MCH 30.6 pg (26.0-34.0); MCHC 33.7 g/dL (31.0-37.0); MCV 90.8 fL (80.0-100.0); MEAN PLATELET VOLUME 10.4 fL (7.4-10.4); MONOCYTES 0.2 % (2-11); NEUTROPHILS 89.1 % (40-80); PLATELET COUNT 117 10x3/uL (130-400); RBC 3.37 10x6/uL (4.20-6.10); RDW 20.1 % (11.5-14.5); WBC 40.8 10x3/uL (4.8-10.8)
[2018-02-26 07:03] LABS: ALBUMIN 3.2 g/dL (3.4-5.0); ALKALINE PHOSPHATASE 137 U/L (46-116); ALT (SGPT) 19 U/L (10-68); BILIRUBIN - TOTAL 0.69 mg/dL (0.2-1.3); CALC OSMOLALITY 281 mosm/kg (275-300); CALCIUM 8.3 mg/dL (8.5-10.1); CHLORIDE - SERUM 107 mmol/L (98-107); CREATININE - SERUM 0.8 mg/dL (0.6-1.3); GLUCOSE 89 mg/dL (74-106); POTASSIUM - SERUM 3.7 mmol/L (3.5-5.1); PROTEIN - SERUM 5.9 g/dL (6.4-8.2); SODIUM 141 mmol/L (136-145); UREA NITROGEN 19 mg/dL (7-18); eGFR NON AFRICAN AMERICAN > 90 mL/min (90-120)
[2018-02-26 08:27] VITALS: BP 107/60
[2018-02-26 12:29] VITALS: BP 117/65
[2018-02-26 14:47] VITALS: Ht 190.5 cm; Wt 77.1 kg
[2018-02-26 16:48] VITALS: BP 121/71
[2018-02-26 20:00] VITALS: BP 118/67
[2018-02-27 04:00] VITALS: BP 113/68
[2018-02-27 06:18] LABS: BASOPHILS 0.5 % (0-2); EOSINOPHILS 0.1 % (0-7); HEMATOCRIT 30.9 % (42.0-54.0); HEMOGLOBIN 10.3 g/dL (13.5-17.5); IMMATURE GRANULOCYTES 9.8 % (0-5); LYMPHOCYTES 0.8 % (15-50); MCH 30.1 pg (26.0-34.0); MCHC 33.3 g/dL (31.0-37.0); MCV 90.4 fL (80.0-100.0); MEAN PLATELET VOLUME 10.9 fL (7.4-10.4); MONOCYTES 0.3 % (2-11); NEUTROPHILS 88.5 % (40-80); PLATELET COUNT 96 10x3/uL (130-400); RBC 3.42 10x6/uL (4.20-6.10); RDW 19.9 % (11.5-14.5)
[2018-02-27 06:28] LABS: ALBUMIN 3.2 g/dL (3.4-5.0); ALKALINE PHOSPHATASE 173 U/L (46-116); ALT (SGPT) 19 U/L (10-68); CALC OSMOLALITY 283 mosm/kg (275-300); CALCIUM 8.6 mg/dL (8.5-10.1); CARBON DIOXIDE 23.1 mmol/L (21.0-32.0); CHLORIDE - SERUM 108 mmol/L (98-107); CREATININE - SERUM 0.8 mg/dL (0.6-1.3); GLUCOSE 148 mg/dL (74-106); POTASSIUM - SERUM 3.6 mmol/L (3.5-5.1); PROTEIN - SERUM 5.9 g/dL (6.4-8.2); SODIUM 140 mmol/L (136-145); UREA NITROGEN 18 mg/dL (7-18); eGFR NON AFRICAN AMERICAN > 90 mL/min (90-120)
[2018-02-27 06:31] LABS: WBC 18.9 10x3/uL (4.8-10.8)
[2018-02-27 07:21] LABS: PLATELET ESTIMATE DECREASED
[2018-02-27 09:15] VITALS: BP 113/66
[2018-02-27 17:06] VITALS: BP 118/64
[2018-02-27 20:00] VITALS: BP 100/61
[2018-02-28 04:00] VITALS: BP 103/61
[2018-02-28 05:36] LABS: BASOPHILS 0.3 % (0-2); EOSINOPHILS 0.5 % (0-7); HEMATOCRIT 30.5 % (42.0-54.0); HEMOGLOBIN 10.1 g/dL (13.5-17.5); IMMATURE GRANULOCYTES 10.6 % (0-5); LYMPHOCYTES 5.3 % (15-50); MCHC 33.1 g/dL (31.0-37.0); MCV 90.5 fL (80.0-100.0); MEAN PLATELET VOLUME 10.5 fL (7.4-10.4); MONOCYTES 0.3 % (2-11); RBC 3.37 10x6/uL (4.20-6.10); RDW 20.1 % (11.5-14.5)
[2018-02-28 05:48] LABS: PLATELET COUNT 67 10x3/uL (130-400)
[2018-02-28 06:18] LABS: ALBUMIN 3.2 g/dL (3.4-5.0); ALKALINE PHOSPHATASE 138 U/L (46-116); ALT (SGPT) 19 U/L (10-68); BILIRUBIN - TOTAL 0.66 mg/dL (0.2-1.3); CALCIUM 8.4 mg/dL (8.5-10.1); CREATININE - SERUM 0.8 mg/dL (0.6-1.3); GLUCOSE 122 mg/dL (74-106); PROTEIN - SERUM 5.9 g/dL (6.4-8.2); UREA NITROGEN 19 mg/dL (7-18); eGFR NON AFRICAN AMERICAN > 90 mL/min (90-120)
[2018-02-28 07:22] LABS: CALC OSMOLALITY 287 mosm/kg (275-300); CHLORIDE - SERUM 108 mmol/L (98-107); POTASSIUM - SERUM 3.1 mmol/L (3.5-5.1); SODIUM 143 mmol/L (136-145)
[2018-02-28 09:30] VITALS: BP 100/61
[2018-02-28 12:25] VITALS: BP 111/71
[2018-02-28 17:10] VITALS: BP 110/63
== END 2018-02-28 18:02 | disposition home health service (06) | DRG 102 ==
LOC: D.ER 10:54 → D.MS 13:40 → D.M2 13:40 → D.EDHOLD 13:40 → D.M2 15:03 → D.MS 16:15
PROVIDERS: Emergency Medicine; Family Medicine; Radiology Diagnostic Radiology
PROC: 3E0R3GC Introduction of Other Therapeutic Substance into Spinal Canal, Percutaneous Approach (ICD-10-PCS; principal; 2018-02-27 11:00)
DX: G97.1 Other reaction to spinal and lumbar puncture (principal); R53.2 Functional quadriplegia; D61.818 Other pancytopenia; C83.30 Diffuse large B-cell lymphoma, unspecified site; R53.1 Weakness; E86.0 Dehydration; E11.9 Type 2 diabetes mellitus without complications; I25.10 Atherosclerotic heart disease of native coronary artery without angina pectoris; Z95.1 Presence of aortocoronary bypass graft; D64.81 Anemia due to antineoplastic chemotherapy

== ENCOUNTER → 2018-04-11 08:14 | Outpatient (CLI) | payer MEDICARE, OTHER ==
[2018-02-26 14:47] VITALS: BMI 21.2
[~2018-04-11 08:14] MED LIST changes: +FLOMAX0.4 MG PO; +JANUVIA100 MG PO; +MAXITROL EYE DRO5 ML EACH EYE; +MEGACE400 MG/10 PO; +MORPHINE SULFAT15 M4 PO; +OMNICEF300 MG PO
[2018-04-11 15:35] LABS: GLUCOSE - CSF 64 MG/DL (40-75); PROTEIN - CSF 132 MG/DL (12-60)
[2018-04-11 19:06] LABS: LYMPH - CSF 35 % (40-80); NEUT - CSF 65 % (0-6)
[2018-04-11 19:10] LABS: APPEARANCE - CSF PINK
[2018-04-11 19:20] LABS: RBC - CSF 7100 cmm (0-0)
[2018-04-14 21:06] LABS: HSV 1 DNA (PCR) Negative (Negative); HSV 2 DNA (PCR) Negative (Negative)
== END | disposition home or self-care (01) ==
LOC: D.RAD 08:14
PROVIDERS: Internal Medicine Medical Oncology
DX: C83.33 Diffuse large B-cell lymphoma, intra-abdominal lymph nodes (principal)

== ENCOUNTER 2018-04-20 01:49 | Emergency (ER) | payer MEDICARE, OTHER ==
[~2018-04-20] VITALS: Ht 190.5 cm; Wt 74.8 kg
[~2018-04-20 01:49] MED LIST changes: -FLOMAX0.4 MG PO; -MAXITROL EYE DRO5 ML EACH EYE; -MEGACE400 MG/10 PO; -MORPHINE SULFAT15 M4 PO
[2018-04-20 01:57] VITALS: Ht 190.5 cm; Wt 74.8 kg
[2018-04-20 03:16] VITALS: BP 115/67
== END 2018-04-20 03:05 | disposition home or self-care (01) ==
LOC: D.ER 01:49
DX: R52 Pain, unspecified (principal); C85.90 Non-Hodgkin lymphoma, unspecified, unspecified site; E11.9 Type 2 diabetes mellitus without complications; Z86.79 Personal history of other diseases of the circulatory system

== ENCOUNTER 2018-04-23 13:58 | Inpatient (IN) | payer MEDICARE, OTHER ==
[~2018-04-23] VITALS: Ht 190.5 cm; Wt 74.8 kg
--- NOTE | ~2018-04-23 | DS ---
PATIENT:SHARMILA YANG :45 MEDICAL RECORD: [id number] DISCHARGE SUMMARY ADMISSION DATE: 04/24/18 DISCHARGE DATE: 05/02/18 DATE OF DISCHARGE: 05/02/2018 DISCHARGE DIAGNOSES: 1. Degenerative disc disease with radiculopathy. 2. Severe spinal stenosis. 3. Non-Hodgkin's lymphoma. 4. Functional quadriplegia. 5. Cranial nerve palsy. 6. Pancytopenia. 7. Hypertension. 8. Coronary artery disease. 9. Diabetes. 10. Urinary retention. 11. Leg weakness. 12. Back pain. 13. Constipation. 14. Confusion. 15. Subacute delirium. 16. Left thigh skin lesion. CONSULTS THIS HOSPITALIZATION: Hem/onc with Dr. Puri; psychiatry with Dr. Alberts; urology with Dr. Shell; neurosurgery with Dr. Preston; general surgery with Dr. Vila.. PROCEDURES THIS HOSPITALIZATION: 1. Lumbar puncture on 04/26/2018 with interventional radiology. 2. Left thigh skin biopsy with Dr. Vila with pathology consistent with metastatic B-cell lymphoma. 3. Lumbar laminectomy on 04/27/[address] Preston. HOSPITAL COURSE: Full H&P is located elsewhere on the chart on this 72-year-old male who was admitted for evaluation of back pain and leg weakness after a fall. He had an MRI consistent with degenerative disc disease with spinal stenosis. He had significant urinary retention. Lu catheter was placed. Urology and neurosurgery were consulted. He was started on Flomax. He was seen by Dr. Puri initially and then Dr. Anderson from oncology for management with high-grade non-Hodgkin's lymphoma. He was on narcotics for pain control. Neurosurgery planned lumbar laminectomy. He underwent that procedure on 04/27/2018. Fingerstick blood sugars were monitored throughout his hospital stay with appropriate adjustment in medications as needed. He underwent skin biopsy of the left thigh lesion with Dr. Vila with pathology as listed above. There was discussion regarding transfer for a higher level of care with significant cranial nerve palsy and no neurology coverage. He did have lumbar laminectomy with Dr. Preston on 04/27/2018 with significant radicular pain relief postoperatively. He had no postoperative complications. Case management was involved for transfer to [facility] in [place]. He developed some significant confusion. Psychiatry was consulted. He was seen by Dr. Alberts who felt this was a subacute delirium related to multiple factors, DISCHARGE SUMMARY REPORT [id number] SHARMILA YANG metabolic disturbances and recent surgery. He was considered stable for transfer to [facility] on 05/02/2018 with need for higher level of care and special fine-cut MRI for evaluation of cranial nerve 3 palsy. DISCHARGE MEDICATIONS: As per discharge medication reconciliation. DISCHARGE DISPOSITION: The patient is transferred to [facility] for further management of cranial nerve palsy. He will follow with the hospitalist service for primary management and then with consult to neurology. He will follow with primary care and specialists here upon discharge from that facility. At least 30 minutes was spent in this discharge activity. TRANSINT:[id number] Voice Confirmation ID: [id number] DOCUMENT ID: [id number] Dictated By: SHEY ANGEL I have interviewed/examined the above patient and agree with these documented findings. WENDY PACHECO MD at 1549 at 1111 CC: [id number] DICTATION DATE: 05/20/18 1737 LEGAL FINANCIAL SPECIALIST: 05/21/18 0154 DIS IN 05/02/18 [place] [id number] [place] [id number]
--- NOTE | ~2018-04-23 | OP ---
PATIENT NAME: SHARMILA YANG MEDICAL RECORD: [id number] :45 LOCATION:D.MS Jarvis2228 ADMISSION DATE:04/24/18 SURGEON: RADHA BARROSO MD DATE OF OPERATION: 04/26/2018 PREOPERATIVE DIAGNOSES: 1. Left inner thigh lesion. 2. High-grade B-cell lymphoma. 3. Diabetes mellitus. 4. Hypertension. 5. Coronary artery disease with history of PTCA with stenting and CABG. POSTOPERATIVE DIAGNOSES: 1. Left inner thigh lesion. 2. High-grade B-cell lymphoma. 3. Diabetes mellitus. 4. Hypertension. 5. Coronary artery disease with history of PTCA with stenting and CABG. PROCEDURE: Left skin punch biopsy. SURGEON: Radha Barroso MD REPORT OF PROCEDURE: The patient's left upper inner thigh and mass were all prepped and draped in sterile fashion. A 5 cc of 1% lidocaine with epinephrine was infused into the surrounding tissues. A punch biopsy was used to take out the core of the tissue in the skin lesion. This was sent off for permanent specimen. The wound was inspected and pressure was held to the area to stop any bleeding. We then applied a Band-Aid. COMPLICATIONS: None. CONDITION: Stable. ANESTHESIA: Local. BLOOD LOSS: Minimal. Procedure done at the bedside. TRANSINT:[id number] Voice Confirmation ID: [id number] DOCUMENT ID: [id number] RADHA BARROSO MD at 1147 CC: [id number] DICTATION DATE: 04/27/18 1037 TILTROTOR CREW CHIEF: 04/27/18 1047 ADM IN [place] [id number] [place] [address]
--- NOTE | ~2018-04-23 | CN ---
PATIENT NAME:SHARMILA YANG MEDICAL RECORD: [id number] : 45 LOCATION:D.MS Jarvis2228 ADMIT DATE: 04/24/18 ACCOUNT: [id number] CONSULTING PHYSICIAN: KATY DACOSTA III, MD REFERRING PHYSICIAN: MELISSA DILLARD MD DATE OF CONSULTATION: 05/02/2018 FINDINGS: A 72-year-old white male admitted on April. The patient has multiple medical problems including coronary artery disease with subsequent stent placement, type 2 diabetes, lymphoma, functional quadriplegia, and recent urinary retention. The patient did undergo a lumbar laminectomy several days ago. Subsequent to this, he has developed confusion and disorientation. The patient has no previous documented psychiatric history. At the time of admission, he had been taking anxiolytics and opioid pain medications for chronic pain. The patient has been started on a combination of p.r.n. Haldol and Ativan for control of his agitation. MENTAL STATUS: On exam today, the patient remains confused, but is not combative. He repeatedly states that he simply wishes to go home. Mood is slightly anxious. Affect is brittle. Speech is repetitive. Content of thought is negative for overt psychosis. The patient is oriented to person and the fact that he is in the hospital. He is not oriented as to time. He shows significant impairment and intermediate and short-term recall. DIAGNOSTIC IMPRESSION: AXIS I: Subacute delirium, probably influenced by multiple factors including recent surgery and metabolic disturbances. RECOMMENDATIONS: We would continue with current orders regarding control of agitation. Hopefully, as the patient's medical condition resolves, his sensorium should clear. TRANSINT:[id number] Voice Confirmation ID: [id number] DOCUMENT ID: [id number] KATY DACOSTA III, MD at 1027 CC: [id number] DICTATION DATE: 05/02/18 1125 FARMWORKER FUR: 05/02/18 1203 DIS IN 05/02/18 [place] [id number] [place] [address]
--- NOTE | ~2018-04-23 | OP ---
PATIENT NAME: SHARMILA YANG MEDICAL RECORD: [id number] :45 LOCATION:D.MS Jarvis2228 ADMISSION DATE:04/24/18 SURGEON: NATALIIA PRESTON MD DATE OF OPERATION: 04/27/2018 PREOPERATIVE DIAGNOSIS: Lumbar spinal stenosis with foraminal stenosis, L4-L5 bilaterally, left greater than the right. POSTOPERATIVE DIAGNOSIS: Lumbar spinal stenosis with foraminal stenosis, L4-L5 bilaterally, left greater than the right. PROCEDURE: Lumbar laminectomy, L4-L5, left with METRx retractor and sublaminar decompression with bilateral foraminotomies at L4-L5. SURGEON: Nataliia Preston MD DESCRIPTION AND TECHNIQUE: After induction of general endotracheal anesthesia, the patient was rolled prone on Justice frame. Lumbar spine was prepped and draped in usual sterile fashion. Fluoroscopic x-ray and spinal needle localized the L4-L5 interspace on the left side. A stab incision was created with #11 blade and series of dilators was used to advance a METRx retractor to the L4-L5 interspace on the left side. The level was confirmed with fluoroscopic x-ray. A microscope and Midas Nicolas were used to perform a laminectomy and medial facetectomy at L4-L5 on the left. Hypertrophied ligamentum flavum was removed with Cloward rongeurs. This spinous process L4 was undermined with the Midas-Nicolas drill. The METRx tube was tilted to the opposite side. Thickened ligamentum flavum was removed with Cloward rongeurs and foraminotomy was carried on the opposite side under direct visualization with the microscope. Hypertrophied ligamentum flavum was removed within the foramen. Following this, the L4 and L5 nerve roots were decompressed well on both sides. Meticulous hemostasis was maintained throughout the wound. Wound was irrigated with copious amounts of Ancef irrigant solution. The fascia was closed with 2-0 Vicryl suture, the subdermal layer was closed with 3-0 Vicryl suture, and the skin was closed with rj. A sterile dressing was applied to the wound. The patient was awakened in good condition and taken to recovery. All counts were reported as correct. Estimated blood loss was minimal. TRANSINT:[id number] Voice Confirmation ID: [id number] DOCUMENT ID: [id number] NATALIIA PRESTON MD at 1844 CC: [id number] DICTATION DATE: 05/08/18 1215 GEOGRAPHIC INFORMATION SCIENTIST: 05/08/18 1236 DIS IN 05/02/18 [place] [id number] [facility] [place] [id number]
[2018-04-23 15:18] LABS: BASOPHILS 0 % (0-2); EOSINOPHILS 0.1 % (0-7); HEMOGLOBIN 11.8 g/dL (13.5-17.5); IMMATURE GRANULOCYTES 0.4 % (0-5); LYMPHOCYTES 3.3 % (15-50); MCHC 33.7 g/dL (31.0-37.0); MCV 103.9 fL (80.0-100.0); MEAN PLATELET VOLUME 10.2 fL (7.4-10.4); MONOCYTES 7.8 % (2-11); NEUTROPHILS 88.4 % (40-80); RBC 3.37 10x6/uL (4.20-6.10); RDW 18.8 % (11.5-14.5); WBC 7.5 10x3/uL (4.8-10.8)
[2018-04-23 15:33] VITALS: BP 107/76
[2018-04-23 15:43] LABS: ANION GAP 14.7 mmol/L (8-16); BILIRUBIN - TOTAL 0.83 mg/dL (0.2-1.3); CALCIUM 9.7 mg/dL (8.5-10.1); CARBON DIOXIDE 26.9 mmol/L (21.0-32.0); CREATININE - SERUM 1.1 mg/dL (0.6-1.3); POTASSIUM - SERUM 3.6 mmol/L (3.5-5.1); PROTEIN - SERUM 7.4 g/dL (6.4-8.2)
[2018-04-23 15:58] LABS: PLATELET COUNT 172 10x3/uL (130-400)
[2018-04-23 16:01] LABS: APPEARANCE CLEAR (CLEAR); BILIRUBIN NEGATIVE (NEGATIVE); COLOR YELLOW (YELLOW); GLUCOSE 1000 mg/dL (NEGATIVE); KETONE MODERATE mg/dL (NEGATIVE); NITRITE NEGATIVE (NEGATIVE); PROTEIN TRACE mg/dL (NEGATIVE); SPECIFIC GRAVITY 1.015 (1.005-1.020); UROBILINOGEN NORMAL (NORMAL)
[2018-04-23 16:30] VITALS: BP 104/68
[2018-04-23 17:30] VITALS: BP 122/72
[2018-04-23] MEDS ORDERED: PROTONIX40 MG PO (19:13)
[2018-04-23] MEDS ORDERED: MORPHINE SULFAT15 M4 PO ×2 (19:14→19:15)
[2018-04-23] MEDS ORDERED: MAXITROL EYE DRO5 ML EACH EYE (19:17)
[2018-04-23 20:00] VITALS: BP 110/70
[2018-04-23 22:08] VITALS: BP 110/70; BMI 20.6
[2018-04-24 00:08] VITALS: BP 115/70
[2018-04-24 04:00] VITALS: BP 104/59
[2018-04-24 07:09] LABS: BASOPHILS 0 % (0-2); EOSINOPHILS 0.2 % (0-7); HEMATOCRIT 31.7 % (42.0-54.0); HEMOGLOBIN 10.5 g/dL (13.5-17.5); IMMATURE GRANULOCYTES 0.5 % (0-5); LYMPHOCYTES 7.8 % (15-50); MCH 34.5 pg (26.0-34.0); MCHC 33.1 g/dL (31.0-37.0); MCV 104.3 fL (80.0-100.0); MEAN PLATELET VOLUME 10.3 fL (7.4-10.4); MONOCYTES 5.8 % (2-11); NEUTROPHILS 85.7 % (40-80); PLATELET COUNT 160 10x3/uL (130-400); RBC 3.04 10x6/uL (4.20-6.10); RDW 18.6 % (11.5-14.5); WBC 6.5 10x3/uL (4.8-10.8)
[2018-04-24 07:23] LABS: CALC OSMOLALITY 280 mosm/kg (275-300); CALCIUM 8.9 mg/dL (8.5-10.1); CARBON DIOXIDE 27.5 mmol/L (21.0-32.0); CHLORIDE - SERUM 108 mmol/L (98-107); CREATININE - SERUM 0.9 mg/dL (0.6-1.3); POTASSIUM - SERUM 3.9 mmol/L (3.5-5.1); SODIUM 141 mmol/L (136-145); UREA NITROGEN 18 mg/dL (7-18); eGFR NON AFRICAN AMERICAN 88 mL/min (90-120)
[2018-04-24 07:30] LABS: GLUCOSE 62 mg/dL (74-106)
[2018-04-24 08:11] VITALS: BP 103/65
[2018-04-24 12:52] VITALS: BMI 20.6
[2018-04-24 13:00] VITALS: Ht 190.5 cm; Wt 74.8 kg
[2018-04-24 13:04] VITALS: BP 132/71
[2018-04-24 16:55] VITALS: BP 116/77
[2018-04-24 20:00] VITALS: BP 121/70
[2018-04-25] VITALS: BP 102/66
[2018-04-25 04:00] VITALS: BP 85/51
[2018-04-25 08:17] VITALS: BP 83/49
[2018-04-25 12:57] VITALS: BP 100/53
[2018-04-25 16:48] VITALS: BP 114/64
[2018-04-25 20:46] VITALS: BP 124/74
[2018-04-26 07:54] LABS: BASOPHILS 0.1 % (0-2); EOSINOPHILS 0.1 % (0-7); HEMATOCRIT 34.7 % (42.0-54.0); HEMOGLOBIN 11.9 g/dL (13.5-17.5); IMMATURE GRANULOCYTES 0.2 % (0-5); LYMPHOCYTES 4.4 % (15-50); MCHC 34.3 g/dL (31.0-37.0); MCV 102.1 fL (80.0-100.0); MEAN PLATELET VOLUME 9.9 fL (7.4-10.4); MONOCYTES 3.4 % (2-11); NEUTROPHILS 91.8 % (40-80); PLATELET COUNT 162 10x3/uL (130-400); WBC 10.2 10x3/uL (4.8-10.8)
[2018-04-26 08:06] VITALS: BP 92/51
[2018-04-26 08:06] LABS: INR 0.99 (0.85-1.17); PROTIME 12.7 SECONDS (11.6-15.0)
[2018-04-26 08:17] LABS: ALBUMIN 3.9 g/dL (3.4-5.0); ANION GAP 14.1 mmol/L (8-16); BILIRUBIN - TOTAL 0.8 mg/dL (0.2-1.3); CALCIUM 9.8 mg/dL (8.5-10.1); CARBON DIOXIDE 26.9 mmol/L (21.0-32.0); CREATININE - SERUM 1.1 mg/dL (0.6-1.3); PROTEIN - SERUM 7.1 g/dL (6.4-8.2)
[2018-04-26 15:27] VITALS: BP 93/47
[2018-04-26 15:31] LABS: GLUCOSE - CSF 47 MG/DL (40-75); PROTEIN - CSF 119 MG/DL (12-60)
[2018-04-26 16:13] LABS: APPEARANCE - CSF CLEAR
[2018-04-26 16:14] LABS: RBC - CSF 39 cmm (0-0)
[2018-04-26 22:09] VITALS: BP 97/60
[2018-04-27] VITALS (10 sets, daily range): BP systolic 98–151; BP diastolic 69–76
[2018-04-28] VITALS: BP 124/74
[2018-04-28 04:06] VITALS: BP 130/72
[2018-04-28 08:02] VITALS: BP 116/76
[2018-04-28 11:53] VITALS: BP 121/72
[2018-04-28 16:12] VITALS: BP 90/55
[2018-04-28 19:59] VITALS: BP 94/56
[2018-04-29] VITALS (7 sets, daily range): BP systolic 83–116; BP diastolic 51–75
[2018-04-30] VITALS (9 sets, daily range): BP systolic 122–180; BP diastolic 59–89
[2018-04-30 06:04] LABS: BASOPHILS 0.1 % (0-2); EOSINOPHILS 0.1 % (0-7); HEMATOCRIT 34.2 % (42.0-54.0); HEMOGLOBIN 11.5 g/dL (13.5-17.5); IMMATURE GRANULOCYTES 0.4 % (0-5); MCH 34.1 pg (26.0-34.0); MCHC 33.6 g/dL (31.0-37.0); MCV 101.5 fL (80.0-100.0); MEAN PLATELET VOLUME 10.9 fL (7.4-10.4); MONOCYTES 5.2 % (2-11); NEUTROPHILS 85.2 % (40-80); PLATELET COUNT 162 10x3/uL (130-400); RBC 3.37 10x6/uL (4.20-6.10); RDW 16.9 % (11.5-14.5); WBC 7.3 10x3/uL (4.8-10.8)
[2018-04-30 06:35] LABS: CALC OSMOLALITY 281 mosm/kg (275-300); CARBON DIOXIDE 22.8 mmol/L (21.0-32.0); CHLORIDE - SERUM 102 mmol/L (98-107); SODIUM 138 mmol/L (136-145); UREA NITROGEN 23 mg/dL (7-18); eGFR NON AFRICAN AMERICAN 78 mL/min (90-120)
[2018-04-30 06:38] LABS: GLUCOSE 139 mg/dL (74-106)
[2018-05-01 04:20] VITALS: BP 101/80
[2018-05-01 08:35] VITALS: BP 156/91
[2018-05-01 13:05] VITALS: BP 132/80
[2018-05-01 13:45] LABS: BASOPHILS 0.1 % (0-2); EOSINOPHILS 0 % (0-7); HEMATOCRIT 33.5 % (42.0-54.0); HEMOGLOBIN 11.8 g/dL (13.5-17.5); IMMATURE GRANULOCYTES 0.2 % (0-5); LYMPHOCYTES 9.9 % (15-50); MCHC 35.2 g/dL (31.0-37.0); MEAN PLATELET VOLUME 10.9 fL (7.4-10.4); MONOCYTES 3.9 % (2-11); NEUTROPHILS 85.9 % (40-80); PLATELET COUNT 161 10x3/uL (130-400); RBC 3.37 10x6/uL (4.20-6.10); RDW 16.4 % (11.5-14.5)
[2018-05-01 13:47] LABS: MCV 99.4 fL (80.0-100.0)
[2018-05-01 14:02] LABS: ALBUMIN 3.6 g/dL (3.4-5.0); ALKALINE PHOSPHATASE 60 U/L (46-116); ALT (SGPT) 22 U/L (10-68); CALC OSMOLALITY 279 mosm/kg (275-300); CALCIUM 9.9 mg/dL (8.5-10.1); CARBON DIOXIDE 22.8 mmol/L (21.0-32.0); CHLORIDE - SERUM 102 mmol/L (98-107); GLUCOSE 145 mg/dL (74-106); SODIUM 137 mmol/L (136-145); UREA NITROGEN 22 mg/dL (7-18); eGFR NON AFRICAN AMERICAN 78 mL/min (90-120)
[2018-05-01 15:41] VITALS: BP 126/75
[2018-05-01 16:13] LABS: APPEARANCE HAZY (CLEAR); BILIRUBIN NEGATIVE (NEGATIVE); COLOR DK YELLOW (YELLOW); GLUCOSE 1000 mg/dL (NEGATIVE); KETONE MODERATE mg/dL (NEGATIVE); NITRITE NEGATIVE (NEGATIVE); PROTEIN TRACE mg/dL (NEGATIVE); SPECIFIC GRAVITY 1.015 (1.005-1.020); UROBILINOGEN NORMAL (NORMAL)
[2018-05-01 16:14] LABS: WHITE CELLS - URINE 0-5 /hpf (0-5)
[2018-05-01 16:15] LABS: BACTERIA FEW /hpf (NONE SEEN); RED CELLS - URINE >50 /hpf (0-5)
[2018-05-01 21:24] VITALS: BP 109/69
[2018-05-02 04:01] VITALS: BP 126/73
[2018-05-02 06:05] LABS: BASOPHILS 0.1 % (0-2); EOSINOPHILS 0 % (0-7); HEMATOCRIT 35.7 % (42.0-54.0); HEMOGLOBIN 12.3 g/dL (13.5-17.5); IMMATURE GRANULOCYTES 0.3 % (0-5); LYMPHOCYTES 10.4 % (15-50); MCH 34.6 pg (26.0-34.0); MCHC 34.5 g/dL (31.0-37.0); MCV 100.3 fL (80.0-100.0); MEAN PLATELET VOLUME 10.5 fL (7.4-10.4); MONOCYTES 6.4 % (2-11); NEUTROPHILS 82.8 % (40-80); PLATELET COUNT 183 10x3/uL (130-400); RBC 3.56 10x6/uL (4.20-6.10); RDW 16.6 % (11.5-14.5); WBC 6.8 10x3/uL (4.8-10.8)
[2018-05-02 06:26] LABS: ALBUMIN 3.7 g/dL (3.4-5.0); ANION GAP 18.9 mmol/L (8-16); BILIRUBIN - TOTAL 0.9 mg/dL (0.2-1.3); CALCIUM 10.5 mg/dL (8.5-10.1); CARBON DIOXIDE 21.9 mmol/L (21.0-32.0); CREATININE - SERUM 1.2 mg/dL (0.6-1.3); POTASSIUM - SERUM 3.8 mmol/L (3.5-5.1); PROTEIN - SERUM 7.2 g/dL (6.4-8.2)
[2018-05-02 08:55] VITALS: BP 129/89
[2018-05-02 12:12] VITALS: BP 136/76
[2018-05-02] MEDS ORDERED: FLOMAX0.4 MG PO (13:16)
[2018-05-02] MEDS ORDERED: MEGACE400 MG/10 PO (13:17)
== END 2018-05-02 15:02 | disposition short-term general hospital (02) | DRG 516 ==
LOC: D.ER 13:58 → D.MS 17:37 → OBSVTIME 17:37 → D.MS 17:37
PROVIDERS: Family Medicine; Internal Medicine Medical Oncology; Internal Medicine Nephrology; Neurological Surgery
PROC: 01NB0ZZ Release Lumbar Nerve, Open Approach (ICD-10-PCS; principal; 2018-04-27 11:00)
DX: M51.16 Intervertebral disc disorders with radiculopathy, lumbar region (principal); C83.30 Diffuse large B-cell lymphoma, unspecified site; E44.0 Moderate protein-calorie malnutrition; F05 Delirium due to known physiological condition; M21.371 Foot drop, right foot; M48.061 Spinal stenosis, lumbar region without neurogenic claudication; E11.42 Type 2 diabetes mellitus with diabetic polyneuropathy; Z79.84 Long term (current) use of oral hypoglycemic drugs; H53.2 Diplopia; I10 Essential (primary) hypertension; Z68.20 Body mass index [BMI] 20.0-20.9, adult; H49.01 Third [oculomotor] nerve palsy, right eye; H49.11 Fourth [trochlear] nerve palsy, right eye; L98.9 Disorder of the skin and subcutaneous tissue, unspecified; Z95.1 Presence of aortocoronary bypass graft; N40.1 Benign prostatic hyperplasia with lower urinary tract symptoms; R33.8 Other retention of urine; N31.9 Neuromuscular dysfunction of bladder, unspecified; T40.2X5A Adverse effect of other opioids, initial encounter; Y92.239 Unspecified place in hospital as the place of occurrence of the external cause; K59.00 Constipation, unspecified; W18.11XA Fall from or off toilet without subsequent striking against object, initial encounter